=== PATIENT | male | born 1995 | race Caucasian/White ===

== ENCOUNTER 2019-11-07 02:17 | Emergency (ER) | payer BC ==
[~2019-11-07] VITALS: Ht 188 cm; Wt 102.3 kg
[2019-11-07 02:17] VITALS: BP 148/80; TEMP 98.3
[~2019-11-07 02:17] MED LIST: NO HOME MEDICATIONS; PERCOCET 325 MG1 TA2 PO
[2019-11-07 03:00] VITALS: PULSE 108
== END 2019-11-07 03:00 | disposition home or self-care (01) ==
LOC: COL.ER 02:17
DX: T40.8X2A Poisoning by lysergide [LSD], intentional self-harm, initial encounter (principal)

== ENCOUNTER 2022-04-19 00:49 | Emergency (ER) | payer OTHER ==
[~2022-04-19] VITALS: Ht 186 cm; Wt 97.7 kg
[2022-04-19 01:29] LABS: COLLECTION METHOD CLEAN CATCH
[2022-04-19 01:36] LABS: SQUAMOUS EPITHELIAL None Seen /hpf (0-10); URINE BACTERIA None Seen /hpf (NONE SEEN); URINE RBC 0-2 /hpf (0-2)
[2022-04-19 01:37] LABS: PH 6.5 (5.0-8.5); URINE APPEARANCE Clear (CLEAR/HAZY); URINE BLOOD Negative (NEGATIVE); URINE COLOR Yellow (YELLOW); URINE GLUCOSE Negative (NEGATIVE); URINE KETONE Negative (NEGATIVE); URINE NITRATE Negative (NEGATIVE); URINE PROTEIN(semi-quant) Negative (NEGATIVE); URINE UROBILINOGEN 0.2 E.U/dL (0.2-1.0)
[2022-04-19 01:38] LABS: BASO # 0.1 K/mm3 (0.0-0.2); BASO % 0.4 % (0.0-2.0); EOS # 0.1 K/mm3 (0.0-0.7); EOS % 0.7 % (0.0-4.0); GRAN # 13.5 K/mm3 (1.4-6.5); GRAN % 81.6 % (42.2-75.2); HEMATOCRIT 40.2 % (42.0-52.0); HEMOGLOBIN 13.8 g/dl (13.5-18.0); LYMPH # 1.5 K/mm3 (1.2-3.4); LYMPH % 9.1 % (20.0-51.0); MEAN CELL VOLUME 93 fl (80.0-100.0); MEAN CORPUSCULAR HEMOGLOBIN 32 pg (27-31); MEAN CORPUSCULAR HGB CONC 34 g/dl (33.0-37.0); MEAN PLATELET VOLUME 9.4 fl (7.4-10.4); MONO # 1.3 K/mm3 (0.1-0.6); MONO % 7.9 % (1.7-9.3); PLATELET COUNT 284 K/mm3 (130-400); RED BLOOD COUNT 4.31 M/mm3 (4.20-5.60); REDCELL DISTRIBUTION WIDTH-CV 12.5 % (11.5-14.5)
[2022-04-19 01:46] LABS: TRICYCLIC ANTIDEPRESS URINE NEGATIVE
[2022-04-19 01:58] LABS: ACETAMINOPHEN < 1.0 ug/mL (10-30); ALANINE AMINOTRANSFERASE 38 U/L (0-55); ALBUMIN 4.5 gm/dL (3.5-5.0); ALCOHOL(ethanol),MEDICAL < 10 mg/dL (0-10); ALKALINE PHOSPHATASE 76 U/L (40-150); ANION GAP 11 mmol/L (7-16); AST,SGOT 34 U/L (5-34); BILIRUBIN,TOTAL 0.4 mg/dL (0.2-1.2); BLOOD UREA NITROGEN 13 mg/dL (9-21); CALCIUM 9.5 mg/dL (8.4-10.2); CARBON DIOXIDE 20 mmol/L (22-29); CHLORIDE 105 mmol/L (98-107); CREATININE, serum 0.94 mg/dL (0.72-1.25); GLUCOSE 98 mg/dL (70-99); POTASSIUM 3.9 mmol/L (3.5-4.5); SALICYLATE < 5.0 mg/dL (15.0-30.0); SODIUM 136 mmol/L (136-145)
[2022-04-19] MEDS ORDERED: RISPERDAL 1M1 MG/TAB PO (01:58)
[2022-04-19] MEDS ORDERED: BUSPAR DIVIDOSE15 MG PO (01:59)
[2022-04-19] MEDS ORDERED: LAMICTAL150 MG PO (02:00)
[2022-04-19] MEDS ORDERED: REVIA 50MG TABL50 MG PO (07:26)
[2022-04-19] MEDS ORDERED: TENEX PO (12:30)
[2022-04-19 13:37] LABS: HIV 1/2 Antibodies Non-Reactive; HIV-1p24 Antigen Non-Reactive
[2022-04-19 16:56] VITALS: TEMP 98.2
[2022-04-20 19:00] VITALS: BP 131/78; PULSE 78
== END 2022-04-20 19:00 | disposition home or self-care (01) ==
LOC: COL.ER 00:49
PROVIDERS: Emergency Medicine; Nurse Practitioner Primary Care
DX: S80.11XA Contusion of right lower leg, initial encounter (principal); S05.12XA Contusion of eyeball and orbital tissues, left eye, initial encounter; S05.11XA Contusion of eyeball and orbital tissues, right eye, initial encounter; F31.9 Bipolar disorder, unspecified; F17.200 Nicotine dependence, unspecified, uncomplicated; Z20.822 Contact with and (suspected) exposure to COVID-19; X50.0XXA Overexertion from strenuous movement or load, initial encounter; Y93.02 Activity, running